=== PATIENT | female | born 1990 | race Two or more races ===

== ENCOUNTER 2017-05-30 06:02 | Emergency (ER) | payer SELFPAY ==
[~2017-05-30] VITALS: Ht 162.6 cm; Wt 55.0 kg
[2017-05-30 10:11] LABS: BASOPHILS % 0.5 % (0.0-2.0); HEMATOCRIT. 39.8 % (36.0-48.0); HEMOGLOBIN. 13.5 g/dL (12.0-16.0); MEAN CORPUSCULAR HEMOGLOBIN 31.9 pg (28.0-32.0); MEAN PLATELET VOLUME 7.9 fl (7.4-10.4); MONOCYTES % 7.2 % (2.0-8.0); NEUTROPHILS % 62.3 % (40.0-76.0); PLATELET 307 x1000/uL (130-400); RED BLOOD CELL COUNT 4.24 mill/uL (4.2-5.4); RED CELL DISTRIBUTION WIDTH 13.2 % (11.6-14.6)
[2017-05-30 10:15] LABS: CHLORIDE 106 mEq/L (98-107)
[2017-05-30 10:27] LABS: CARBON DIOXIDE 24 mEq/L (21-32)
[2017-05-30 10:43] LABS: B-HCG QUANTITATIVE 25184 mIU/mL (<3)
[2017-05-30 10:47] LABS: CLARITY URINE CLEAR (CLEAR); COLOR URINE YELLOW (YELLOW); KETONES URINE NEGATIVE (NEGATIVE); LEUKOCYTE ESTERASE URINE 2+ (NEGATIVE); NITRITE URINE NEGATIVE (NEGATIVE); OCCULT BLOOD URINE 2+ (NEGATIVE); PH URINE 5.5 (4.5-8.0); PROTEIN URINE NEGATIVE (NEGATIVE); SPECIFIC GRAVITY URINE 1.015 (1.005-1.030)
[2017-05-30 11:35] VITALS: BP 106/64
== END 2017-05-30 11:52 | disposition home or self-care (01) ==
LOC: ER 06:02
DX: O20.0 Threatened abortion (principal); O23.41 Unspecified infection of urinary tract in pregnancy, first trimester; N39.0 Urinary tract infection, site not specified; Z3A.01 Less than 8 weeks gestation of pregnancy
CPT/HCPCS: 36415; 76801; 80053; 81001; 81025; 84702; 85025; 99285

== ENCOUNTER 2017-06-30 17:09 | Emergency (ER) | payer SELFPAY ==
[~2017-06-30] VITALS: Ht 165.1 cm; Wt 57.0 kg
[2017-06-30] MEDS: SODIUM CHLORIDE 0.9% 1,000 ML IV ONE (23:28)
[2017-06-30] MEDS: ACETAMINOPHEN 500MG TABLET PO ONE (23:35)
[2017-06-30 23:43] LABS: CLARITY URINE CLOUDY (CLEAR); COLOR URINE DARK YELLOW (YELLOW); KETONES URINE 2+ (NEGATIVE); LEUKOCYTE ESTERASE URINE TRACE (NEGATIVE); NITRITE URINE NEGATIVE (NEGATIVE); OCCULT BLOOD URINE 2+ (NEGATIVE); PH URINE 5.5 (4.5-8.0); PROTEIN URINE NEGATIVE (NEGATIVE); SPECIFIC GRAVITY URINE 1.033 (1.005-1.030)
[2017-06-30] MEDS: ONDANSETRON HCL 4MG/2ML VIAL IV ONE (23:48)
[2017-06-30 23:49] LABS: BASOPHILS % 0.3 % (0.0-2.0); EOSINOPHILS % 2.1 % (0.0-5.0); HEMATOCRIT. 36.8 % (36.0-48.0); HEMOGLOBIN. 12.9 g/dL (12.0-16.0); MEAN CORPUSCULAR HEMOGLOBIN 32.9 pg (28.0-32.0); MEAN CORPUSCULAR VOLUME 93.6 fL (81.0-99.0); MEAN PLATELET VOLUME 8.3 fl (7.4-10.4); MONOCYTES % 7.6 % (2.0-8.0); PLATELET 237 x1000/uL (130-400); RED BLOOD CELL COUNT 3.93 mill/uL (4.2-5.4); RED CELL DISTRIBUTION WIDTH 12.6 % (11.6-14.6)
[2017-07-01] LABS: CARBON DIOXIDE 24 mEq/L (21-32); CHLORIDE 107 mEq/L (98-107)
[2017-07-01 00:08] LABS: B-HCG QUANTITATIVE 125241 mIU/mL (<3)
[2017-07-01 02:00] VITALS: BP 102/62
== END 2017-07-01 02:00 | disposition home or self-care (01) ==
LOC: ER 17:09
DX: O21.1 Hyperemesis gravidarum with metabolic disturbance (principal); O99.281 Endocrine, nutritional and metabolic diseases complicating pregnancy, first trimester; E86.0 Dehydration; O23.41 Unspecified infection of urinary tract in pregnancy, first trimester; O99.89 Other specified diseases and conditions complicating pregnancy, childbirth and the puerperium; R19.7 Diarrhea, unspecified; Z3A.12 12 weeks gestation of pregnancy
CPT/HCPCS: 36415; 76801; 76817; 80053; 81001; 81025; 84702; 85025; 96374; 99285; J2405; J7030; Z7610

== ENCOUNTER 2017-11-18 17:52 | Observation (INO) | payer MEDICAID ==
[~2017-11-18] VITALS: Ht 152.4 cm; Wt 51.3 kg
[2017-11-18] MEDS ORDERED: PNV1TABL76 PO (18:47)
[2017-11-18] MEDS ORDERED: BETAMETHASONE ACET/BETAMET 30 MG/5 ML VIAL IM NR (21:11)
[2017-11-19] MEDS: BETAMETHASONE ACET/BETAMET 30 MG/5 ML VIAL IM SCH ×4 (21:30→22:03)
== END 2017-11-19 21:40 | disposition home or self-care (01) ==
LOC: L&D 17:52
PROVIDERS: ADMIT Obstetrics & Gynecology; ATTEND Obstetrics & Gynecology
DX: Z34.93 Encounter for supervision of normal pregnancy, unspecified, third trimester (principal); Z3A.33 33 weeks gestation of pregnancy
CPT/HCPCS: 76815; 76818; 82731; 96372; 99281; G0378; J0702